=== PATIENT | female | born 1985 | race Caucasian/White ===

== ENCOUNTER 2017-12-26 14:25 | Emergency (ER) | payer OTHER ==
[~2017-12-26] VITALS: Ht 157.5 cm; Wt 64.4 kg
[2017-12-26 14:38] VITALS: Ht 157.5 cm; Wt 64.4 kg
[2017-12-26 17:09] VITALS: BP 144/94
== END 2017-12-26 17:09 | disposition home or self-care (01) ==
LOC: ED 14:25
DX: S00.83XA Contusion of other part of head, initial encounter (principal); M25.522 Pain in left elbow; W22.01XA Walked into wall, initial encounter; Y93.89 Activity, other specified; Y92.89 Other specified places as the place of occurrence of the external cause; Y99.8 Other external cause status

== ENCOUNTER 2019-03-11 15:30 | Emergency (ER) | payer MEDICAID ==
[~2019-03-11] VITALS: Ht 157.5 cm; Wt 67.1 kg
[2019-03-11 15:41] VITALS: Ht 157.5 cm; Wt 67.1 kg
[2019-03-11 17:35] VITALS: BP 165/92
== END 2019-03-11 17:39 | disposition home or self-care (01) ==
LOC: ED 15:30
DX: L50.9 Urticaria, unspecified (principal); Z98.890 Other specified postprocedural states